=== PATIENT | female | born 1965 | race Caucasian/White ===

== ENCOUNTER 2017-03-08 21:17 | Emergency (ER) | payer OTHER ==
[2017-03-08 21:27] VITALS: BP 105/57; PULSE 62; TEMP 97.6; BMI 25.7
--- NOTE | 2017-03-08 21:39 | PDOC ---
History of Present Illness - General History Source: Patient Exam Limitations: No Limitations - History of Present Illness Initial Comments: 03/08/17 21:39 The patient is a 51 year old female with a significant past medical history of HTN, HLD, who presents to the ED with bilateral knee pain and a headache that began 2 days ago. Patient had Aleve yesterday but with little to no alleviation. She reports having weight loss surgery in December 2015. She had 120 pounds taken off. Patient denies any trauma. Patient denies any fever, chills, nausea, vomiting. Patient denies dysuria, frequency, hematuria. <Johnnie Clark - Last Filed: 03/08/17 21:49> <Stacy Portillo - Last Filed: 03/09/17 01:17> - General Chief Complaint: Chronic pain Stated Complaint: BILAT KNEE PAIN Time Seen by Provider: 03/08/17 21:38 Past History <Johnnie Clark - Last Filed: 03/08/17 21:49> - Past Medical History Anemia: No Asthma: No Cancer: No Cardiac Disorders: No CVA: No COPD: No CHF: No DVT: No Diabetes: No Dialysis: No HTN: Yes Hypercholesterolemia: Yes HIV: No Kidney Stones: No Liver Disease: No Psychiatric Problems: No - Surgical History GI Surgery: Yes (gastric sx 2015) - Immunization History Immunization Up to Date: Yes - Psycho/Social/Smoking Cessation Hx Anxiety: No Suicidal Ideation: No Smoking Status: No Smoking History: Unknown if ever smoked Have you smoked in the past 12 months: No Number of Cigarettes Smoked Daily: 0 Information on smoking cessation initiated: No 'Breaking Loose' booklet given: 10/30/13 Hx Alcohol Use: No Drug/Substance Use Hx: No Substance Use Type: None Hx Substance Use Treatment: No <Stacy Portillo - Last Filed: 03/09/17 01:17> - Past Medical History Allergies/Adverse Reactions: Allergies Allergy/AdvReac Type Severity Reaction Status Date / Time aspirin Allergy Swelling Verified 04/20/16 17:54 Home Medications: Ambulatory Orders Lisinopril [Prinivil] 20 mg PO DAILY 12/01/15 Celecoxib [Celebrex] 200 mg PO DAILY #20 capsule 03/08/17 Review of Systems - Review of Systems Able to Perform ROS?: Yes Comments:: 03/08/17 21:39 GENERAL/CONSTITUTIONAL: No fever or chills. No weakness. HEAD, EYES, EARS, NOSE AND THROAT: No change in vision. No ear pain or discharge. No sore throat. CARDIOVASCULAR: No chest pain or shortness of breath. RESPIRATORY: No cough, wheezing, or hemoptysis. GASTROINTESTINAL: No nausea, vomiting, diarrhea or constipation. GENITOURINARY: No dysuria, frequency, or change in urination. MUSCULOSKELETAL: + bilateral knee pain. No neck or back pain. SKIN: No rash NEUROLOGIC: + headache. No vertigo, loss of consciousness, or change in strength /sensation. ENDOCRINE: No increased thirst. No abnormal weight change. HEMATOLOGIC/LYMPHATIC: No anemia, easy bleeding, or history of blood clots. ALLERGIC/IMMUNOLOGIC: No hives or skin allergy <Johnnie Clark - Last Filed: 03/08/17 21:49> *Physical Exam - Vital Signs Last Vital Signs Temp Pulse Resp BP Pulse Ox 97.6 F 62 14 105/57 100 03/08/17 21:20 03/08/17 21:20 03/08/17 21:20 03/08/17 21:20 03/08/17 21:20 - Physical Exam Comments: 03/08/17 21:40 GENERAL: The patient is awake, alert, and fully oriented, in no acute distress. HEAD: Normal with no signs of trauma. EYES: Pupils equal, round and reactive to light, extraocular movements intact, sclera anicteric, conjunctiva clear with no pallor. ENT: Ears normal, nares patent, oropharynx clear without exudates. Moist mucous Membranes. NECK: Normal range of motion, supple without lymphadenopathy, JVD, or masses. LUNGS: Breath sounds equal, clear to auscultation bilaterally. No wheeze/ crackles. HEART: Regular rate and rhythm, normal S1 and S2 without murmur or rub. ABDOMEN: Soft/nontender/nondistended. BS wnl. No guarding or rebound. No palpable masses. No hepatosplenomegaly. EXTREMITIES: Lower extremities- Left more than right tenderness on palpation throughout the anterior knee especially along the anterior joint space on the left knee. No posterior edema or tenderness. No deformity. Minimal edema. No ligament instability. No ecchymosis. Rest of extremities is normal. NEUROLOGICAL: Cranial nerves II through XII grossly intact. Normal speech, normal gait. PSYCH: Normal mood, normal affect. SKIN: Warm, Dry, normal turgor, no rashes or lesions noted. <Johnnie Clark - Last Filed: 03/08/17 21:49> - Vital Signs Last Vital Signs Temp Pulse Resp BP Pulse Ox 97.6 F 62 14 105/57 100 03/08/17 21:20 03/08/17 21:20 03/08/17 21:20 03/08/17 21:20 03/08/17 21:20 <Sofie Portilloyoanna Kaminski - Last Filed: 03/09/17 01:17> Medical Decision Making - Medical Decision Making Documentation has been prepared under my direction and personally reviewed by me in its entirety. I attest that this documented accurately reflects all work, treatment, procedures and medical decision making performed by me. As noted above, this 51-year-old Vietnamese-speaking woman, (daughter and hospital staff interpreting) with a history of hypertension and s/p bariatric surgery about a year ago with a weight loss of greater than 100 pounds, presents with bilateral knee pain. She had been seen by an orthopedist regarding her knee pain prior to her bariatric surgery. Orthopedic surgeon had suggested that she lose weight as first step in treating her joint pain. Approximately 2 weeks ago , without overuse or trauma, she began to have worsening pain in her knees with movement. No history of joint swelling/redness or fever. Patient states that she took 1 Aleve tablet yesterday. She avoids nonsteroidal anti-inflammatory medications and aspirin because of gastric irritation after their use. Exam, as above, shows tenderness anteriorly in both knees, left greater than right. There is no evidence of acute inflammation. No significant edema/ erythema/increased warmth to touch present. Patient also states that she has had 48 hours of bilateral headache. She indicates that the pain is on both sides of her head. She denies neck stiffness or neck tenderness. She has not had fever or chills. She also denies nausea/vomiting/neurologic changes. Patient given 60 mg Toradol IM now. Although patient has a history of gastric irritation from anti-inflammatory medications, she does not have an ALLERGY to them. The patient realizes that ketorolac is a nonsteroidal anti-inflammatory but since only one dose will be given now, she consents to this medication. According to the patient, she has not had any x-rays of her knees performed in the past. Bilateral 2 position x-rays of the knees were performed. Evaluation by Dr. Hale ,radiology staff : mild osteoarthritic changes in both knees, left greater than right. No other specific abnormalities are seen. Results discussed with the patient and her daughter. The patient has been in contact with her orthopedist and soonest follow-up appointment is in 2 weeks. Prescription for Celebrex 200 mg daily will be transmitted to her pharmacy. She should take this with food. Also, she should follow-up with her general doctor, Dr. Olivas within 48 hours in order to evaluate her regarding her headache. She should return to the emergency room if she has severe headache/vomiting or worsening knee pain <Stacy Portillo - Last Filed: 03/09/17 01:17> *DC/Admit/Observation/Transfer - Attestations Scribe Attestion: 03/08/17 21:40 Documentation prepared by Johnnie Clark, acting as medical claims analyst for Stacy Portillo MD. <Johnnie Clark - Last Filed: 03/08/17 21:49> <Stacy Portillo - Last Filed: 03/09/17 01:17> Diagnosis at time of Disposition: Bilateral knee pain Qualifiers: Chronicity: chronic Qualified Code(s): M25.561 - Pain in right knee - Discharge Dispostion Disposition: HOME Condition at time of disposition: Stable - Prescriptions Prescriptions: Celecoxib [Celebrex] 200 mg PO DAILY #20 capsule - Referrals Referrals: Kate Olivas MD [Primary Care Provider] - 2 Days - Patient Instructions Printed Discharge Instructions: DI for Knee Pain Additional Instructions: Call your orthopedist tomorrow to make appointment for evaluation Celebrex 200 mg daily for paintake with food Follow-up within [address] Olivas Return to ER if you have not persistent, severe headache or worsening knee pain Print Language: HUNGARIAN
[2017-03-08] MEDS ORDERED: KETOROLAC TROMETHAMINE 60 MG/2 ML VIAL ONE (21:40)
[2017-03-08] MEDS ORDERED: KETOROLAC TROMETHAMINE 60 MG/2 ML VIAL IM ONE (21:40)
== END 2017-03-08 22:26 | disposition home or self-care (01) ==
LOC: FER 21:17
PROC: 3E0233Z Introduction of Anti-inflammatory into Muscle, Percutaneous Approach (ICD-10-PCS; principal; 2017-03-08)
DX: M25.561 Pain in right knee (principal); Z98.84 Bariatric surgery status; I10 Essential (primary) hypertension; E78.00 Pure hypercholesterolemia, unspecified
CPT/HCPCS: 73560-TC-LT; 73560-TC-RT; 99282-25

== ENCOUNTER 2017-06-25 09:02 | Emergency (ER) | payer OTHER ==
[2017-06-25 09:18] VITALS: BP 110/62; PULSE 72; TEMP 97.5; BMI 23.0
[2017-06-25 09:38] LABS: URINE APPEARANCE SLCLOUDY; URINE BILIRUBIN NEGATIVE (NEGATIVE); URINE BLOOD 1+ (NEGATIVE); URINE COLOR YELLOW; URINE GLUCOSE (UA) NEGATIVE (NEGATIVE); URINE KETONE NEGATIVE (NEGATIVE); URINE LEUK ESTERASE TRACE (NEGATIVE); URINE NITRITE NEGATIVE (NEGATIVE); URINE PROTEIN NEGATIVE (NEGATIVE); URINE UROBILINOGEN NEGATIVE mg/dL (0.2-1.0)
[2017-06-25 09:40] LABS: URINE MUCUS RARE; URINE RBC 2 /hpf (0-3); URINE WBC 1 /hpf (3-5)
[2017-06-25] MEDS ORDERED: ACETAMINOPHEN 500 MG TABLET (FP) PO ONE (09:52)
[2017-06-25] MEDS ORDERED: KETOROLAC TROMETHAMINE 60 MG/2 ML VIAL ONE (10:00)
[2017-06-25] MEDS ORDERED: KETOROLAC TROMETHAMINE 60 MG/2 ML VIAL IM ONE (10:00)
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
== END 2017-06-25 11:33 | disposition home or self-care (01) ==
LOC: JERFT 09:02
PROC: 3E0233Z Introduction of Anti-inflammatory into Muscle, Percutaneous Approach (ICD-10-PCS; principal; 2017-06-25)
DX: S39.012A Strain of muscle, fascia and tendon of lower back, initial encounter (principal); N20.0 Calculus of kidney; X50.0XXA Overexertion from strenuous movement or load, initial encounter; Y93.E2 Activity, laundry; Y92.59 Other trade areas as the place of occurrence of the external cause; Y99.0 Civilian activity done for income or pay; I10 Essential (primary) hypertension; E78.00 Pure hypercholesterolemia, unspecified
CPT/HCPCS: 74176; 81003; 81015; 87086; 96372; 99281-25

== ENCOUNTER 2017-10-25 17:10 | Emergency (ER) | payer OTHER ==
[2017-10-25 17:18] VITALS: BP 127/69; PULSE 81; TEMP 97.9; BMI 25.6
[2017-10-25] MEDS ORDERED: ACETAMINOPHEN 500 MG TABLET (FP) PO ONE (18:13)
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
[2017-10-25] MEDS ORDERED: ACETAMINOPHEN 500 MG TABLET (FP) ONE (18:23)
== END 2017-10-25 19:25 | disposition home or self-care (01) ==
LOC: JERFT 17:10
DX: S80.02XA Contusion of left knee, initial encounter (principal); S80.01XA Contusion of right knee, initial encounter; V03.10XA Pedestrian on foot injured in collision with car, pick-up truck or van in traffic accident, initial encounter; Y92.414 Local residential or business street as the place of occurrence of the external cause; Y93.01 Activity, walking, marching and hiking; Y99.8 Other external cause status
CPT/HCPCS: 72100-TC; 73562-TC-LT; 73562-TC-RT; 99281-25

== ENCOUNTER 2017-12-16 11:16 | Emergency (ER) | payer OTHER ==
[2017-12-16 11:30] VITALS: BMI 27.5
--- NOTE | 2017-12-16 11:33 | PDOC ---
History of Present Illness - General History Source: Patient Exam Limitations: No Limitations - History of Present Illness Initial Comments: 12/16/17 15:14 Patient is a 52 year old female with a significant past medical history of HTN, and Hypercholesterolemia, who presents to the ED with complaints of left lower back pain that began earlier this week while at home. Patient reports being at home when she began to experience left lower back pain that has to begun to radiate down her left leg prompting her to come into the ED for further evaluation. She reports experiencing associated symptoms of dizziness and chills. Denies chest pain, Sob. Denies nausea, vomiting. Denies fevers, chills. Denies contact with sick individuals, out of state travelling. Denies any other symptoms. Allergies: Aspirin Socal history: Lives alone. No smoking. No alcohol. No illicit drugs. Surgical history: Gastric sx 2015 PMD: Dr. Kate Olivas <Samuel Antonio - Last Filed: 12/16/17 15:59> <Nettie Briscoe - Last Filed: 12/16/17 23:42> - General Chief Complaint: Lightheaded Stated Complaint: HEADACHE Time Seen by Provider: 12/16/17 11:33 Past History <Samuel Antonio - Last Filed: 12/16/17 15:59> - Past Medical History Anemia: No Asthma: No Cancer: No Cardiac Disorders: No CVA: No COPD: No CHF: No DVT: No Diabetes: No Dialysis: No HTN: Yes Hypercholesterolemia: Yes Kidney Stones: No Liver Disease: No Psychiatric Problems: No - Surgical History Abdominal Surgery: Yes GI Surgery: Yes (gastric sx 2015) - Immunization History Immunization Up to Date: Yes - Suicide/Smoking/Psychosocial Hx Smoking Status: No Smoking History: Never smoked Have you smoked in the past 12 months: No Number of Cigarettes Smoked Daily: 0 Information on smoking cessation initiated: No 'Breaking Loose' booklet given: 10/30/13 Hx Alcohol Use: No Drug/Substance Use Hx: No Substance Use Type: None Hx Substance Use Treatment: No <Nettie Briscoe - Last Filed: 12/16/17 23:42> - Past Medical History Allergies/Adverse Reactions: Allergies Allergy/AdvReac Type Severity Reaction Status Date / Time aspirin Allergy Swelling Verified 12/16/17 11:26 Home Medications: Ambulatory Orders Lisinopril/Hydrochlorothiazide [Lisinopril-Hctz 10-12.5 mg Tab] 1 each PO ASDIR 10/25/17 Review of Systems - Review of Systems Able to Perform ROS?: Yes Comments:: 12/16/17 15:14 Constitutional - Pt denies Fever, Chills, weakness, HEENT: denies vision changes, sore throat Respiratory: Denies cough, sob, hemoptysis Cardiac: denies chest pain, palpitations, lightheadedness, leg swelling Abd/GI: denies abd pain, nausea, vomiting, blood per rectum, melena, diarrhea : denies dysuria, frequency, discharge Musculoskeletal - +Left lower back pain. Denies joint swelling skin - denies bruising, erythema, rash neurological: +Dizziness denies headache, numbness, focal weakness, tingling, ataxia, weakness hematologic: denies anemia, easy bruising, easy bleeding <Samuel Antonio - Last Filed: 12/16/17 15:59> *Physical Exam - Vital Signs Last Vital Signs Temp Pulse Resp BP Pulse Ox 97.8 F 71 16 101/69 100 12/16/17 14:39 12/16/17 14:39 12/16/17 14:39 12/16/17 14:39 12/16/17 14:39 - Physical Exam Comments: 12/16/17 15:14 GENERAL: The patient is awake, alert, and fully oriented, Nontoxic - in no acute distress. HEAD: Normocephalic, atraumatic. EYES: extraocular movements intact, sclera anicteric, conjunctiva clear. ENT: Normal voice, moist mucous membranes. NECK: Normal range of motion, supple without lymphadenopathy, JVD, or masses. LUNGS: Breath sounds equal, clear to auscultation bilaterally. No wheezes, no crackles, no rales. HEART: Regular rate and rhythm, normal S1 and S2 without murmur, rub or gallop. ABDOMEN: Soft, nontender, normoactive bowel sounds. No guarding, no rebound. No masses. EXTREMITIES: Normal range of motion, no edema. No clubbing or cyanosis. No cords , erythema, or tenderness. NEUROLOGICAL: +Increased dizziness when sitting up. Fully Oriented, Alert, Normal Mood/Affect, Motor Strength 5/5. No facial asymmetry, Normal speech SKIN: Warm, Dry, normal turgor, no rashes or lesions noted. <MariselaSamuel - Last Filed: 12/16/17 15:59> - Vital Signs Last Vital Signs Temp Pulse Resp BP Pulse Ox 59 L 24 116/73 100 12/16/17 11:26 12/16/17 11:26 12/16/17 11:26 12/16/17 11:26 <Nettie Briscoe - Last Filed: 12/16/17 23:42> Heart Score/ECG Review - ECG Intrepretation Comment:: 12/16/17 15:59 Completed @12:39:02 Sinus Bradycardia Nonspecific T wave abnormality Abnormal ECG Vent. rate 50 bpm NH interval 164 ms QRS duration 100 ms QT/QTc 500/455 ms <Samuel Antonio - Last Filed: 12/16/17 15:59> ED Treatment Course - LABORATORY CBC & Chemistry Diagram: 12/16/17 12:33 12/16/17 12:31 - ADDITIONAL ORDERS Additional order review: Laboratory Results 12/16/17 12/16/17 14:15 12:31 Sodium 139 Potassium 4.2 Chloride 101 Carbon Dioxide 25 Anion Gap 13 BUN 15 Creatinine 0.6 Creat Clearance w eGFR > 60 Random Glucose 80 Calcium 9.3 Total Bilirubin 0.5 D AST 31 ALT 31 Alkaline Phosphatase 60 Total Protein 7.4 Albumin 3.9 Urine Color Straw Urine Appearance Clear Urine pH 8.0 D Ur Specific Palm 1.012 Urine Protein Negative Urine Glucose (UA) Negative Urine Ketones Negative Urine Blood Negative Urine Nitrite Negative Urine Bilirubin Negative Urine Urobilinogen Negative Ur Leukocyte Esterase 2+ H Urine WBC (Auto) <1 Urine RBC (Auto) <1 Ur Epithelial Cells Rare Urine Mucus Rare 12/16/17 12:33 RBC 4.81 D MCV 85.5 MCHC 34.0 RDW 14.0 MPV 9.0 Neutrophils % 69.7 Lymphocytes % 22.5 Monocytes % 7.1 Eosinophils % 0.4 Basophils % 0.3 - Medications Given in the ED: ED Medications Discontinued Medications Generic Name Dose Route Start Last Admin Trade Name Freq PRN Reason Stop Dose Admin Acetaminophen 1,000 mg 12/16/17 12:20 12/16/17 12:45 Ofirmev Injection - IVPB 12/16/17 12:21 1,000 mg ONCE ONE Administration Lorazepam 0.5 mg 12/16/17 12:20 12/16/17 12:45 Ativan Injection - IVPUSH 12/16/17 12:21 0.5 mg ONCE ONE Administration <Sameul Antonio - Last Filed: 12/16/17 15:59> - LABORATORY CBC & Chemistry Diagram: 12/16/17 12:33 12/16/17 12:31 <Nettie Briscoe - Last Filed: 12/16/17 23:42> Medical Decision Making - Medical Decision Making 12/16/17 23:[address] Nettie Briscoe attest that the scribes documentation that appears above has been prepared under by direction and personally reviewed by me. I confirm that the above is accurate and medical decision -making performed by me. Pt symptoms began approximately 1 week ago as per pt no meds taken at home. Pt arrived in ED c/o severe dizziness with moving and c/o left flank pain, pt was initially very emotional about dizziness, language line was use to obtain history from pt. PT told junior technical writer this had happened to her in the past and she was treated with tranquilizers and improved. Pt was given .5mg of ativan, tylenol iv ad pt rested, Upon reevaluation pt no longer dizzy, pt able to ambulate in ed with steady gait, able to walk on heels, nl strengt, nl sensory, no focal deficitsnl neuro exam. PT's ekg and labs reviewed, pt stable for dc home with out pt f/u with pcp, pt agrees with this dc plan <Nettie Briscoe - Last Filed: 12/16/17 23:42> *DC/Admit/Observation/Transfer - Attestations Scribe Attestion: 12/16/17 15:14 Documentation prepared by Samuel Antonio, acting as medical art therapist for Nettie Briscoe MD/DO. <Samuel Antonio - Last Filed: 12/16/17 15:59> - Discharge Dispostion Admit: No <Nettie Briscoe - Last Filed: 12/16/17 23:42> Diagnosis at time of Disposition: Vertigo - Discharge Dispostion Disposition: HOME Condition at time of disposition: Stable - Referrals Referrals: Kate Olivas MD [Primary Care Provider] - - Patient Instructions Printed Discharge Instructions: Vertigo, DI for Vertigo Additional Instructions: Return to ED for severe dizziness , weakness of extremities nausea and vomiting or as needed, Pt to f/u with pcp in next 48-72 hrs, Pt agrees with this dc plan Print Language: BULGARIAN
[2017-12-16] MEDS ORDERED: ACETAMINOPHEN 1000 MG/100 ML VIAL (NON FORMULARY) IVPB ONE (12:20)
[2017-12-16] MEDS ORDERED: LORazepam 2 MG/ML SDV VIAL ONE (12:38)
[2017-12-16] MEDS ORDERED: ACETAMINOPHEN INJECTION 100 ML IVPB ONE (12:38)
[2017-12-16 12:52] LABS: BASO % 0.3 % (0-2.0); EOS % 0.4 % (0-4.5); HEMATOCRIT 41.1 % (32.4-45.2); LYMPH % 22.5 % (8-40); MCH 29.1 pg (25.7-33.7); MEAN CELL VOLUME 85.5 fl (80-96); MONO % 7.1 % (3.8-10.2); NEUT % 69.7 % (42.8-82.8); PLATELET COUNT 247 K/MM3 (134-434); RBC 4.81 M/mm3 (3.60-5.2); WHITE BLOOD COUNT 5.4 K/mm3 (4.0-10.0)
[2017-12-16 13:26] LABS: ALBUMIN 3.9 g/dl (3.4-5.0); ALK PHOS 60 U/L (45-117); ANION GAP 13 (8-16); BILIRUBIN,TOTAL 0.5 mg/dL (0.2-1.0); BLOOD UREA NITROGEN 15 mg/dL (7-18); CALCIUM 9.3 mg/dL (8.5-10.1); CHLORIDE 101 mmol/L (98-107); CO2 25 mmol/L (21-32); CREATININE 0.6 mg/dL (0.55-1.02); GLUCOSE,RANDOM 80 mg/dL (74-106); POTASSIUM 4.2 mmol/L (3.5-5.1); SGOT/AST 31 U/L (15-37); SGPT/ALT 31 U/L (12-78); SODIUM 139 mmol/L (136-145); TOT PROT 7.4 g/dl (6.4-8.2)
[2017-12-16 14:26] LABS: URINE APPEARANCE CLEAR; URINE BILIRUBIN NEGATIVE (NEGATIVE); URINE BLOOD NEGATIVE (NEGATIVE); URINE COLOR STRAW; URINE GLUCOSE (UA) NEGATIVE (NEGATIVE); URINE KETONE NEGATIVE (NEGATIVE); URINE NITRITE NEGATIVE (NEGATIVE); URINE PROTEIN NEGATIVE (NEGATIVE); URINE UROBILINOGEN NEGATIVE mg/dL (0.2-1.0)
[2017-12-16 14:27] LABS: URINE LEUK ESTERASE 2+ (NEGATIVE)
[2017-12-16 14:28] LABS: EPI CELLS RARE /HPF (FEW); URINE MUCUS RARE
[2017-12-16 14:40] VITALS: TEMP 97.8
[2017-12-16 15:23] VITALS: BP 133/84; PULSE 89
--- NOTE | 2017-12-16 18:34 | EKG ---
Test Reason : Blood Pressure : / mmHG Vent. Rate : 050 BPM Atrial Rate : 050 BPM P-R Int : 164 ms QRS Dur : 100 ms QT Int : 500 ms P-R-T Axes : 045 027 004 degrees QTc Int : 455 ms SINUS BRADYCARDIA NONSPECIFIC T WAVE ABNORMALITY ABNORMAL ECG WHEN COMPARED WITH ECG OF 30-OCT-2013 18:33, NO SIGNIFICANT CHANGE WAS FOUND Confirmed by MARS PASCUAL MD ([id number]) on 12/16/2017 6:33:38 PM Referred By: Confirmed By:MARS PASCUAL MD
== END 2017-12-16 15:23 | disposition home or self-care (01) ==
LOC: JER 11:16
PROC: 3E033NZ Introduction of Analgesics, Hypnotics, Sedatives into Peripheral Vein, Percutaneous Approach (ICD-10-PCS; principal; 2017-12-16)
PROC: 3E033NZ Introduction of Analgesics, Hypnotics, Sedatives into Peripheral Vein, Percutaneous Approach (ICD-10-PCS; 2017-12-16)
DX: R42 Dizziness and giddiness (principal)
CPT/HCPCS: 36415; 80053; 81003; 81015; 85025; 93005; 93010; 99285-25

== ENCOUNTER 2019-01-10 16:07 | Emergency (ER) | payer OTHER ==
[2019-01-10 17:15] VITALS: BP 102/48; PULSE 60; TEMP 98.8; BMI 29.2
--- NOTE | 2019-01-10 17:18 | PDOC ---
History of Present Illness - General Chief Complaint: Pain, Acute Stated Complaint: PAIN Time Seen by Provider: 01/10/19 17:17 History Source: Patient, Track Inspecting Supervisor Used Exam Limitations: Language Barrier - History of Present Illness Initial Comments: 53 yo F w a pmh of HTN and HCL presents to the ER with the chief complaint of right sided lower back pain near the hip. She has been experiencing this pain for a long time and she is taking pain killers for the pain but they do not help. She took 2 advil this morning but hasn't taken anything else today. The pain starts in the lower back, goes to the hip, and continues down to the knee. Sometimes she feels like she can't walk. When she walks the pain hurts more. She thought it might be related to her kidneys so she started drinking alot of water but it hasn't helped. She denies any dysuria and urgency but endorses frequency secondary to her drinking more water. Denies any fevers or recent infections but endorses chills over the past few days. She states she gets the chills every 5 to 10 minutes which comes and goes. This started 1 month ago when her pain began. She currently denies having chest pain, shortness of breath , or difficulty breathing. She has seen her PCP regarding this pain. Her PCP sent her to her urologist and the urologist said she has small kidney stones. When asked what can be done for her in the ER she responds that she would like her pain to be investigated with at least an X-ray. The patient also states that she has a headache which she frequently gets whenever she has back pain. Allergies: Aspirin Socal history: Lives alone. No smoking. No alcohol. No illicit drugs. Surgical history: Gastric sx 2016 - stomach reduction, breast reduction. PMD: Dr. Kate Olivas Past History - Past Medical History Allergies/Adverse Reactions: Allergies Allergy/AdvReac Type Severity Reaction Status Date / Time ibuprofen Allergy Intermediate Swelling Verified 01/10/19 18:09 aspirin Allergy Swelling Verified 01/10/19 18:09 Home Medications: Ambulatory Orders Lisinopril/Hydrochlorothiazide [Lisinopril-Hctz 10-12.5 mg Tab] 1 each PO ASDIR 10/25/17 Acetaminophen [Tylenol] 650 mg PO QID PRN #60 tablet 01/10/19 Cephalexin [Keflex] 500 mg PO BID #14 capsule 01/10/19 Lidocaine 5% Patch [Lidoderm -] 1 patch TP DAILY PRN #7 patch 01/10/19 Methocarbamol [Robaxin -] 500 mg PO TID PRN #21 tablet 01/10/19 Anemia: No Asthma: No Cancer: No Cardiac Disorders: No CVA: No COPD: No CHF: No DVT: No Diabetes: No Dialysis: No HTN: Yes Hypercholesterolemia: Yes Kidney Stones: No Liver Disease: No Psychiatric Problems: No - Surgical History Abdominal Surgery: Yes GI Surgery: Yes (gastric sx 2016) - Immunization History Immunization Up to Date: Yes - Suicide/Smoking/Psychosocial Hx Smoking Status: No Smoking History: Never smoked Have you smoked in the past 12 months: No Number of Cigarettes Smoked Daily: 0 Information on smoking cessation initiated: No 'Breaking Loose' booklet given: 10/30/13 Hx Alcohol Use: No Drug/Substance Use Hx: No Substance Use Type: None Hx Substance Use Treatment: No Review of Systems - Review of Systems Able to Perform ROS?: Yes Comments:: CONSTITUTIONAL: Absent: fever, no chills, no fatigue EYES: Absent: visual changes ENT: Absent: ear pain, no sore throat CARDIOVASCULAR: Absent: chest pain, no palpitations RESPIRATORY: Absent: cough, no SOB GI: Absent: abdominal pain, no nausea, no vomiting, no constipation, no diarrhea GENITOURINARY: Absent: dysuria, no frequency, no hematuria MUSKULOSKELETAL: Present: Back pain Absent: no arthralgia, no myalgia SKIN: Absent: rash NEURO: Absent: headache *Physical Exam - Vital Signs Last Vital Signs Temp Pulse Resp BP Pulse Ox 98.8 F 60 16 102/48 L 100 01/10/19 16:15 01/10/19 16:15 01/10/19 16:15 01/10/19 16:15 01/10/19 16:15 - Physical Exam General Appearance: Yes: Nourished, Appropriately Dressed, Apparent Distress HEENT: positive: EOMI, CASTRO, Normal ENT Inspection, Normal Voice Neck: positive: Supple. negative: Tender, Lymphadenopathy (R), Lymphadenopathy (L) Respiratory/Chest: positive: Lungs Clear, Normal Breath Sounds Cardiovascular: positive: Regular Rhythm, Regular Rate, S1, S2. negative: Edema Vascular Pulses: Dorsalis-Pedis (R): 2+, Doralis-Pedis (L): 2+ Gastrointestinal/Abdominal: positive: Normal Bowel Sounds, Soft. negative: Distended, Guarding, Rebound Rectal Exam: positive: deferred Lymphatic: negative: Adenopathy Musculoskeletal: positive: Normal Inspection, Muscle Spasm, Other (Left lower back/flank tenderness. Negative CVA TTP. ). negative: CVA Tenderness Extremity: positive: Normal Capillary Refill, Normal Inspection, Normal Range of Motion Integumentary: positive: Normal Color, Dry, Warm Neurologic: positive: resort keeper II-XII NML intact, Fully Oriented, Alert, Normal Mood/ Affect, Normal Response ED Treatment Course - LABORATORY CBC & Chemistry Diagram: 01/10/19 17:49 01/10/19 17:49 Medical Decision Making - Medical Decision Making 53 yo F w a hx of ht and hcl presents with lower back pain which appears to be chronic in nature with no fevers and no concerning signs for spinal cord processes such as spinal epidural abscess, cord compression, conus medualris or cauda equina. There is no vertebral TTP on exam. VS: Diastolic BP hypotensive. Ddx IBNLT: Spinal cord process, muscular spasm, cauda equina, conus medularis, sciatica, renal colic, kidney stones, UTI/Pylo, electroly/,etabolic derangement. Plan: Labs, Urine, +/- Imaging, IV hydration, analgesia, re-assess. Signing out patient to Dr. Cisneros for further care and disposition. *DC/Admit/Observation/Transfer Diagnosis at time of Disposition: UTI (urinary tract infection) Lower back pain Qualifiers: Chronicity: chronic Back pain laterality: left Sciatica presence: with sciatica Sciatica laterality: sciatica of left side Qualified Code(s): M54.42 - Lumbago with sciatica, left side - Discharge Dispostion Disposition: HOME Condition at time of disposition: Stable - Prescriptions Prescriptions: Acetaminophen [Tylenol] 650 mg PO QID PRN #60 tablet PRN Reason: Back Pain Cephalexin [Keflex] 500 mg PO BID #14 capsule Lidocaine 5% Patch [Lidoderm -] 1 patch TP DAILY PRN #7 patch PRN Reason: Back Pain Methocarbamol [Robaxin -] 500 mg PO TID PRN #21 tablet PRN Reason: Back Pain - Referrals Referrals: Lencho Rojas MD, FAANS [Staff Physician] - Kate Olivas MD [Primary Care Provider] - Pelon Huitron MD [Staff Physician] - - Patient Instructions Printed Discharge Instructions: DI for Low Back Pain Additional Instructions: You were seen in the ER for back pain. We did blood and urine labs and a back x- ray. We did find a urinary tract infection, but there were no other concerning findings on any of your tests. After our assessment, we do not believe you are having a medical emergency at this time, and we believe you are safe to go home. medical operations supervisor and take your prescriptions that we are sending electronically to your pharmacy. Please take the entire course of antibiotics as directed to treat your bladder infection, whether or not you feel better. Take Tylenol primarily for your back pain, and you can also use the methocarbamol and/or lidocaine patches we are prescribing if you need extra pain control. Follow up with your primary doctor in 1-3 days. Call their clinic [facility], tell them you were seen in the ER, and tell them you need an appointment. We are giving you referral information for a spine doctor and a urologist so you can discuss your chronic back pain and your kidney stones, so please also call them and make an appointment. Please come back to the ER at any time, 24 hours a day, for any new or worsening symptoms, especially for fever, new numbness, new tingling new weakness, new urinary or bowel incontinence or retention, or other new symptoms. If you are having severe or life threatening symptoms, or symptoms that make it unsafe to drive or have someone drive you, please call 911. Te vieron en urgencias por dolor de espalda. Hicimos laboratorios de rosa maria y orina y alberto radiografa de espalda. Encontramos alberto infeccin en las vas urinarias, kem no hubo otros hallazgos sobre ninguna de true pruebas. Despus de nuestra evaluacin, no creemos que usted est teniendo alberto emergencia mdica en trey momento, y creemos que est seguro para ir a casa. Recoja y tome true recetas que estamos enviando electrnicamente a buenrostro farmacia. Por favor, tome todo el curso de los antibiticos lindy se indica para tratar la infeccin de la vejiga, si se siente mejor o no. [place] Tylenol principalmente para buenrostro dolor de espalda, y lópez puede utilizar los parches de metocarbamol y/o lidocana que le recetamos si necesita control de dolor adicional. Siga con buenrostro mdico de cabecera en 1-3 santana. Llame a buenrostro clnica lo antes posible, dgales que fue visto en urgencias y dgales que necesita alberto catherine. Le estamos dando informacin de referencia para un mdico de [place] vertebral y un urlogo para que pueda discutir buenrostro dolor de espalda crnico y true clculos renales, as que por favor lópez llmelos un - Post Discharge Activity
[2019-01-10] MEDS ORDERED: SODIUM CHLORIDE 0.9% 500 ML INFUS.BAG IV ONE (17:39)
[2019-01-10 18:00] LABS: BASO % 0.9 % (0-2.0); EOS % 1.6 % (0-4.5); HEMATOCRIT 43.2 % (32.4-45.2); HEMOGLOBIN 14.4 GM/dL (10.7-15.3); LYMPH % 49.8 % (8-40); MCH 27.9 pg (25.7-33.7); MCHC 33.3 g/dl (32.0-36.0); MEAN CELL VOLUME 83.7 fl (80-96); MEAN PLT VOLUME 8.5 fl (7.5-11.1); MONO % 8.8 % (3.8-10.2); NEUT % 38.9 % (42.8-82.8); PLATELET COUNT 266 K/MM3 (134-434); RBC 5.16 M/mm3 (3.60-5.2); RDW 14.8 % (11.6-15.6); WHITE BLOOD COUNT 4.9 K/mm3 (4.0-10.0)
[2019-01-10 18:40] LABS: ALBUMIN 3.9 g/dl (3.4-5.0); ALK PHOS 74 U/L (45-117); ANION GAP 6 MMOL/L (8-16); BILIRUBIN,TOTAL 0.5 mg/dL (0.2-1); BLOOD UREA NITROGEN 21 mg/dL (7-18); CALCIUM 9.4 mg/dL (8.5-10.1); CHLORIDE 104 mmol/L (98-107); CO2 28 mmol/L (21-32); CREATININE 0.7 mg/dL (0.55-1.3); GLUCOSE,RANDOM 88 mg/dL (74-106); POTASSIUM 4.3 mmol/L (3.5-5.1); SGOT/AST 25 U/L (15-37); SGPT/ALT 31 U/L (13-61); SODIUM 138 mmol/L (136-145); TOT PROT 7.8 g/dl (6.4-8.2)
--- NOTE | 2019-01-10 19:25 | PDOC ---
Attending Attestation - HPI HPI: 01/10/19 19:25 The patient is a 53-year-old female with a past medical history significant for HTN and HCL presents to the emergency department with back pain. The patient presents with four month of right-sided back pain that radiates down to the hip and knees. The patient reports the pain is aggravated with ambulation, denies relief with Advil or pain medication. The patient reports associated symptoms of a headache that usually coincide with the back pain. Denies chest pain or shortness of breath. The patient reports following up with Urologist, who states she had small kidney stones. Denies fever, chills, dysuria or changes in bowel habits. The patient endorses urinary frequency, states its secondary to drinking a lot of water. Allergies: Aspirin Social history: None reported. Denies the use of IV drug use. PCP: Dr. Amanda Olivas. - Medical Decision Making 01/10/19 19:25 Documentation prepared by Emilia Foster, acting as medical assistant secretary for Hilda Blanco MD. <Emilia Foster - Last Filed: 01/10/19 19:25> - Resident Resident Name: Jordi Sosa - ED Attending Attestation I have performed the following: I have examined & evaluated the patient, The case was reviewed & discussed with the resident, I agree w/resident's findings & plan, Exceptions are as noted - HPI HPI: 01/10/19 19:24 53 yo F wit c/o lower back pain started 4 mo ago. saw pmd. - Physicial Exam PE: 01/10/19 19:43 awake alert lungs clear bilaterally heart rrr no mrg abd soft nt nd. no pulsatile masses. ext wwp sensation intact bilat lower ext. 5/5 lower ext strength. no midline spinal tenderness. - Medical Decision Making 01/10/19 19:24 53 yo F with low back pain differential includes msk starin pain, sciatica, plan xray ua r/o uti or pyelo, pain control reassess. pt with normal nuerological exam. if xray normal, will dc on tylenol, muscle relaxers,lidoderm patch. recommend outpt mri, . ua positive will treat with keflex. fu pcp. 01/10/19 19:45 <Hilda Blanco - Last Filed: 01/10/19 19:45>
[2019-01-10] MEDS ORDERED: ACETAMINOPHEN 500 MG TABLET (FP) PO ONE (19:27)
[2019-01-10 19:30] LABS: EPI CELLS 1.8 /HPF (0-5); URINE APPEARANCE CLEAR; URINE BACTERIA 42.1 /hpf (NEGATIVE); URINE BILIRUBIN NEGATIVE (NEGATIVE); URINE CASTS 3 /hpf (0-8); URINE COLOR YELLOW; URINE GLUCOSE (UA) NEGATIVE (NEGATIVE); URINE KETONE NEGATIVE (NEGATIVE); URINE LEUK ESTERASE 3+ (NEGATIVE); URINE NITRITE NEGATIVE (NEGATIVE); URINE PROTEIN NEGATIVE (NEGATIVE); URINE RBC 1 /hpf (0-4); URINE UROBILINOGEN 0.2 mg/dL (0.2-1.0); URINE WBC 47 /hpf (0-5)
[2019-01-10] MEDS ORDERED: LIDOCAINE 5% TOPICAL PATCH TP ONE (19:34)
[2019-01-10] MEDS ORDERED: METHOCARBAMOL 500 MG TABLET PO ONE (19:34)
--- NOTE | 2019-01-10 19:43 | PDOC ---
*Physical Exam - Vital Signs Last Vital Signs Temp Pulse Resp BP Pulse Ox 98.8 F 60 16 102/48 L 100 01/10/19 16:15 01/10/19 16:15 01/10/19 16:15 01/10/19 16:15 01/10/19 16:15 01/10/19 19:37 Patient's care endorsed to me by Dr. Sosa at the end of his shift. 53YOF with h/o HTN HLD punctate renal stones (seen on CT A/P from 2017) prior bariatric surgery and 4-month h/o left back pain w/ sciatica, comes in with worsened back pain otherwise unchanged from normal baseline, also no focal neuro signs. Took 40 mg Advil at home without relief, hasn't tried anything else at home. Pending remaining labs. ED Treatment Course - LABORATORY CBC & Chemistry Diagram: 01/10/19 17:49 01/10/19 17:49 - ADDITIONAL ORDERS Additional order review: Laboratory Results 01/10/19 01/10/19 01/10/19 18:34 17:49 17:49 Sodium 138 Potassium 4.3 Chloride 104 Carbon Dioxide 28 Anion Gap 6 L BUN 21 H Creatinine 0.7 Creat Clearance w eGFR 86.88 Random Glucose 88 Calcium 9.4 Total Bilirubin 0.5 AST 25 ALT 31 Alkaline Phosphatase 74 Troponin I < 0.02 C-Reactive Protein Total Protein 7.8 Albumin 3.9 Urine Color Yellow Urine Appearance Clear Urine pH 6.0 D Ur Specific Vona 1.011 Urine Protein Negative Urine Glucose (UA) Negative Urine Ketones Negative Urine Blood Negative Urine Nitrite Negative Urine Bilirubin Negative Urine Urobilinogen 0.2 Ur Leukocyte Esterase 3+ H Urine WBC (Auto) 47 Urine RBC (Auto) 1 Urine Casts (Auto) 3 U Epithel Cells (Auto) 1.8 Urine Bacteria (Auto) 42.1 01/10/19 17:49 Sodium Potassium Chloride Carbon Dioxide Anion Gap BUN Creatinine Creat Clearance w eGFR Random Glucose Calcium Total Bilirubin AST ALT Alkaline Phosphatase Troponin I C-Reactive Protein 0.6 H Total Protein Albumin Urine Color Urine Appearance Urine pH Ur Specific [place]ona Urine Protein Urine Glucose (UA) Urine Ketones Urine Blood Urine Nitrite Urine Bilirubin Urine Urobilinogen Ur Leukocyte Esterase Urine WBC (Auto) Urine RBC (Auto) Urine Casts (Auto) U Epithel Cells (Auto) Urine Bacteria (Auto) 01/10/19 17:49 RBC 5.16 MCV 83.7 MCHC 33.3 RDW 14.8 MPV 8.5 Neutrophils % 38.9 L D Lymphocytes % 49.8 H D Monocytes % 8.8 Eosinophils % 1.6 D Basophils % 0.9 - Medications Given in the ED: ED Medications Discontinued Medications Generic Name Dose Route Start Last Admin Trade Name Consuelo PRN Reason Stop Dose Admin Sodium Chloride 1,000 ml 01/10/19 17:39 01/10/19 18:02 Normal Saline - IV 01/10/19 17:40 1,000 ml ONCE ONE Administration Medical Decision Making - Medical Decision Making 01/10/19 19:43 Patient remains painful/tender. On exam no neuro focal deficits, pain is left paraspinous at L3 radiating downward including sciatic nerve. Placed order for Tylenol, Robaxin, Lido patch. Placed order for XR lumbosacral spine. She is comfortable with this plan. 01/10/19 19:47 Laboratory Tests 01/10/19 01/10/19 01/10/19 17:49 17:49 17:49 WBC 4.9 RBC 5.16 Hgb 14.4 Hct 43.2 MCV 83.7 MCH 27.9 MCHC 33.3 RDW 14.8 Plt Count 266 MPV 8.5 Absolute Neuts (auto) 1.9 Neutrophils % 38.9 L D Lymphocytes % 49.8 H D Monocytes % 8.8 Eosinophils % 1.6 D Basophils % 0.9 Nucleated RBC % 0 ESR 9 Sodium Potassium Chloride Carbon Dioxide Anion Gap BUN Creatinine Creat Clearance w eGFR Random Glucose Calcium Total Bilirubin AST ALT Alkaline Phosphatase Troponin I C-Reactive Protein 0.6 H Total Protein Albumin Urine Color Urine Appearance Urine pH Ur Specific Vona Urine Protein Urine Glucose (UA) Urine Ketones Urine Blood Urine Nitrite Urine Bilirubin Urine Urobilinogen Ur Leukocyte Esterase Urine WBC (Auto) Urine RBC (Auto) Urine Casts (Auto) U Epithel Cells (Auto) Urine Bacteria (Auto) 01/10/19 01/10/19 01/10/19 17:49 17:49 18:34 WBC RBC Hgb Hct MCV MCH MCHC RDW Plt Count MPV Absolute Neuts (auto) Neutrophils % Lymphocytes % Monocytes % Eosinophils % Basophils % Nucleated RBC % ESR Sodium 138 Potassium 4.3 Chloride 104 Carbon Dioxide 28 Anion Gap 6 L BUN 21 H Creatinine 0.7 Creat Clearance w eGFR 86.88 Random Glucose 88 Calcium 9.4 Total Bilirubin 0.5 AST 25 ALT 31 Alkaline Phosphatase 74 Troponin I < 0.02 C-Reactive Protein Total Protein 7.8 Albumin 3.9 Urine Color Yellow Urine Appearance Clear Urine pH 6.0 D Ur Specific [place] 1.011 Urine Protein Negative Urine Glucose (UA) Negative Urine Ketones Negative Urine Blood Negative Urine Nitrite Negative Urine Bilirubin Negative Urine Urobilinogen 0.2 Ur Leukocyte Esterase 3+ H Urine WBC (Auto) 47 Urine RBC (Auto) 1 Urine Casts (Auto) 3 U Epithel Cells (Auto) 1.8 Urine Bacteria (Auto) 42.1 UA c/w UTI, Keflex dose ordered. 01/10/19 21:36 Patient states pain is much better, able to ambulate without difficulty, repeat exam benign. They are appropriate for discharge with close outpatient follow up. The Pt is comfortable with this plan and will follow up with their primary care provider in 1-3 days. Appropriate referral info given for neurosurgery and urology. Rx sent for remaining Keflex Rx and also pain medications. They are counseled on importance of proactive pain management and neurosurgery follow up. Specific return precautions are discussed and they will come back to the ER if necessary. *DC/Admit/Observation/Transfer Diagnosis at time of Disposition: Lower back pain Qualifiers: Chronicity: chronic Back pain laterality: left Sciatica presence: with sciatica Sciatica laterality: sciatica of left side Qualified Code(s): M54.42 - Lumbago with sciatica, left side UTI (urinary tract infection) Qualifiers: Urinary tract infection type: acute cystitis Hematuria presence: without hematuria Qualified Code(s): N30.00 - Acute cystitis without hematuria - Discharge Dispostion Disposition: HOME Condition at time of disposition: Stable Decision to Admit order: No - Prescriptions Prescriptions: Acetaminophen [Tylenol] 650 mg PO QID PRN #60 tablet PRN Reason: Back Pain Cephalexin [Keflex] 500 mg PO BID #14 capsule Lidocaine 5% Patch [Lidoderm -] 1 patch TP DAILY PRN #7 patch PRN Reason: Back Pain Methocarbamol [Robaxin -] 500 mg PO TID PRN #21 tablet PRN Reason: Back Pain - Referrals Referrals: Kate Olivas MD [Primary Care Provider] - Lencho Rojas MD, FAANS [Staff Physician] - Pelon Huitron MD [Staff Physician] - - Patient Instructions Printed Discharge Instructions: DI for Low Back Pain Additional Instructions: You were seen in the ER for back pain. We did blood and urine labs and a back x- ray. We did find a urinary tract infection, but there were no other concerning findings on any of your tests. After our assessment, we do not believe you are having a medical emergency at this time, and we believe you are safe to go home. supervisor carding and take your prescriptions that we are sending electronically to your pharmacy. Please take the entire course of antibiotics as directed to treat your bladder infection, whether or not you feel better. Take Tylenol primarily for your back pain, and you can also use the methocarbamol and/or lidocaine patches we are prescribing if you need extra pain control. Follow up with your primary doctor in 1-3 days. Call their clinic [facility], tell them you were seen in the ER, and tell them you need an appointment. We are giving you referral information for a spine doctor and a urologist so you can discuss your chronic back pain and your kidney stones, so please also call them and make an appointment. Please come back to the ER at any time, 24 hours a day, for any new or worsening symptoms, especially for fever, new numbness, new tingling new weakness, new urinary or bowel incontinence or retention, or other new symptoms. If you are having severe or life threatening symptoms, or symptoms that make it unsafe to drive or have someone drive you, please call 911. Te vieron en urgencias por dolor de espalda. Hicimos laboratorios de rosa maria y orina y alberto radiografa de espalda. Encontramos alberto infeccin en las vas urinarias, kem no hubo otros hallazgos sobre ninguna de true pruebas. Despus de nuestra evaluacin, no creemos que usted est teniendo alberto emergencia mdica en trey momento, y creemos que est seguro para ir a casa. Recoja y tome true recetas que estamos enviando electrnicamente a buenrostro farmacia. Por favor, tome todo el curso de los antibiticos lindy se indica para tratar la infeccin de la vejiga, si se siente mejor o no. Wiley Tylenol principalmente para buenrostro dolor de espalda, y lópez puede utilizar los parches de metocarbamol y/o lidocana que le recetamos si necesita control de dolor adicional. Siga con buenrostro mdico de cabecera en 1-3 santana. Llame a buenrostro clnica lo antes posible, dgales que fue visto en urgencias y dgales que necesita alberto catherine. Le estamos dando informacin de referencia para un mdico de [place] vertebral y un urlogo para que pueda discutir buenrostro dolor de espalda crnico y true clculos renales, as que por favor lópez choumelos un - Post Discharge Activity
[2019-01-10] MEDS ORDERED: CEPHALEXIN MONOHYDRATE 500 MG CAPSULE (UD) PO ONE (19:45)
[2019-01-10] MEDS ORDERED: CEPHALEXIN MONOHYDRATE 500 MG CAPSULE (UD) ONE (20:29)
[2019-01-10] MEDS ORDERED: METHOCARBAMOL 500 MG TABLET ONE (20:29)
[2019-01-10] MEDS ORDERED: LIDOCAINE 5% TOPICAL PATCH ONE (20:30)
[2019-01-10] MEDS ORDERED: ACETAMINOPHEN 500 MG TABLET (FP) ONE (20:31)
--- NOTE | 2019-01-11 12:23 | EKG ---
Test Reason : Blood Pressure : / mmHG Vent. Rate : 064 BPM Atrial Rate : 064 BPM P-R Int : 184 ms QRS Dur : 090 ms QT Int : 470 ms P-R-T Axes : 044 022 008 degrees QTc Int : 484 ms NORMAL SINUS RHYTHM WITH SINUS ARRHYTHMIA PROLONGED QT ABNORMAL ECG WHEN COMPARED WITH ECG OF 16-DEC-2017 12:39, NO SIGNIFICANT CHANGE WAS FOUND Confirmed by BRISEIDA ROBBINS, HARSH ([id number]) on 01/11/2019 12:22:49 PM Referred By: Confirmed By:HARSH GOINS MD
== END 2019-01-10 21:50 | disposition home or self-care (01) ==
LOC: JER 16:07
DX: N39.0 Urinary tract infection, site not specified (principal); M54.42 Lumbago with sciatica, left side
CPT/HCPCS: 36415; 72100-TC-FY; 80053; 81003; 84484; 85025; 85651; 86140; 87086; 87186; 93005; 93010; 99281-25; 99283-25

== ENCOUNTER 2021-09-24 12:08 | Emergency (ER) | payer OTHER ==
[2021-09-24 12:20] VITALS: BMI 31.1
[2021-09-24 15:32] VITALS: BP 85/56; PULSE 75; TEMP 97.9
== END 2021-09-24 16:47 | disposition home or self-care (01) ==
LOC: JER 12:08
DX: G44.209 Tension-type headache, unspecified, not intractable (principal)
CPT/HCPCS: 70450-TC; 99284-25